=== PATIENT | female | born 1960 | race Caucasian/White ===

== ENCOUNTER 2025-04-23 12:40 | Emergency (ER) | payer OTHER, SELFPAY ==
[2025-04-23 12:45] VITALS: BP 99/73; PULSE 73; RESP 18; TEMP 36.3; O2SAT 95; BMI 29.5
[2025-04-23 15:55] VITALS: BP 126/82; PULSE 78; RESP 16; TEMP 37.1; O2SAT 99
--- NOTE | 2025-04-23 16:18 | EX.ED.DYSGE1 ---
HPI History of Present Illness Chief Complaint: Med Refill Narrative Narrative: Chief complaint and HPI: Medication refill. 65-year-old female who recently moved to [place] from [place] presents for evaluation of medication refill. Patient states she has chronic pain in which she follows with pain management in [place]. States that she was written a prescription for her monthly Percocet. Patient states [facility] told her that it could not be filled secondary to [id number] prescription. Patient states she is currently in the process of being switched to our pain management here at [facility]. Review of systems: See HPI Medications: As listed on the chart Allergies: As listed on the chart PFSH: Per chart Vital signs: As listed on the chart. Reviewed. Physical exam: Gen: A&O x3, NAD Head: Normocephalic, atraumatic Eyes: No sclera icterus, conjunctiva clear ENT: Moist mucous membranes CV: Regular rate Resp: Nonlabored respirations Musc: Full ROM, no deformity Neuro: Alert, oriented, grossly intact, sensation intact Psych: Cooperative, appropriate mood and affect [facility] Medical History (Updated 04/23/25 @ 15:[address] Adrien Marinelli, DO) Anxiety ADHD Depression HTN (hypertension) Home Medications ?Medication ?Instructions ?Recorded ?Last Taken ?Type oxycodone-acetaminophen 10 mg-325 1 tab PO Q6H PRN pain 7 days #28 04/23/25 Unknown Rx mg tablet (Percocet) tabs Allergy/AdvReac Type Severity Reaction Status Date / Time Sulfa (Sulfonamide Allergy Rash Verified 04/23/25 12:45 Antibiotics) Social History Smoking Status: Never smoker EXAM Physical Exam Const Vital Signs: 04/23/25 12:45 04/23/25 15:34 04/23/25 15:55 Temperature 97.3 F L 98.8 F Temperature Source Temporal Pulse Rate 73 78 Respiratory Rate 18 16 Respiratory Effort Normal Non-Labored Respiratory Pattern Normal Blood Pressure 99/73 126/82 H Blood Pressure Mean 81 96 Pulse Ox 95 99 Oxygen Delivery Method Room Air MDM MDM MDM Narrative Medical decision making narrative: 65-year-old female who recently moved to [place] from [place] presents for evaluation of medication refill. Patient states she has chronic pain in which she follows with pain management in [place]. States that she was written a prescription for her monthly Percocet. Patient states [facility] that [facility] could not be filled secondary to [id number] prescription. Patient states she is currently in the process of being switched to our pain management here at [facility]. Patient states that she follows with Wilman Mclaughlin for pain management in [place]. I did try to call the office number at [phone] however the office closed at 3 PM and therefore was not able to get a hold of the physician or staff member. I did call [facility] in which they did report that the patient has a prescription written by a Wilman Mclaughlin for Percocet 10 mg/325 every 6 hours as needed for pain x 30 days. I did inform the patient that given I cannot personally speak with the physician, I do not feel comfortable writing the Percocet prescription for 30 days instead I will write for 1 week. She was told that she needs to contact his office and explain the situation. I recommended her following up with our pain management as well and inform them of the situation. She confirmed understanding of plan. Return precautions explained. Patient stable to discharge home. Impression: 1. Medication refill request 2. History of chronic pain in pain management Discharge Plan Triage Chief Complaint: Med Refill ED Provider: Adrien Marinelli Dx/Rx/DC Orders Clinical Impression: Medication refill Instructions: Med Refill Prescriptions: New oxycodone-acetaminophen [Percocet] 10-325 mg tablet 1 tab PO Q6H PRN (Reason: pain) 7 Days Qty: 28 0RF Primary Care Provider: Samuel Coello Referrals: Samuel Coello MD [Primary Care Provider] - 3-5 Days Activity Restrictions/Additional Instructions: Follow-up with pain management Print Language: Persian Disposition Disposition: Home, Self Care Discharge Date/Time: 04/23/25 15:57
--- NOTE | 2025-04-23 16:18 | EX.ED.DYSGE1 ---
HPI History of Present Illness Chief Complaint: Med Refill Narrative Narrative: Chief complaint and HPI: Medication refill. 65-year-old female who recently moved to [place] from [place] presents for evaluation of medication refill. Patient states she has chronic pain in which she follows with pain management in [place]. States that she was written a prescription for her monthly Percocet. Patient states [facility] that [facility] could not be filled secondary to [id number] prescription. Patient states she is currently in the process of being switched to our pain management here at [facility]. Review of systems: See HPI Medications: As listed on the chart Allergies: As listed on the chart PFSH: Per chart Vital signs: As listed on the chart. Reviewed. Physical exam: Gen: A&O x3, NAD Head: Normocephalic, atraumatic Eyes: No sclera icterus, conjunctiva clear ENT: Moist mucous membranes CV: Regular rate Resp: Nonlabored respirations Musc: Full ROM, no deformity Neuro: Alert, oriented, grossly intact, sensation intact Psych: Cooperative, appropriate mood and affect [facility] Medical History (Updated 04/23/25 @ 15:[address] Adrien Marinelli, DO) Anxiety ADHD Depression HTN (hypertension) Home Medications ?Medication ?Instructions ?Recorded ?Last Taken ?Type oxycodone-acetaminophen 10 mg-325 1 tab PO Q6H PRN pain 7 days #28 04/23/25 Unknown Rx mg tablet (Percocet) tabs Allergy/AdvReac Type Severity Reaction Status Date / Time Sulfa (Sulfonamide Allergy Rash Verified 04/23/25 12:45 Antibiotics) Social History Smoking Status: Never smoker EXAM Physical Exam Const Vital Signs: 04/23/25 12:45 04/23/25 15:34 04/23/25 15:55 Temperature 97.3 F L 98.8 F Temperature Source Temporal Pulse Rate 73 78 Respiratory Rate 18 16 Respiratory Effort Normal Non-Labored Respiratory Pattern Normal Blood Pressure 99/73 126/82 H Blood Pressure Mean 81 96 Pulse Ox 95 99 Oxygen Delivery Method Room Air MDM MDM MDM Narrative Medical decision making narrative: 65-year-old female who recently moved to [place] from [place] presents for evaluation of medication refill. Patient states she has chronic pain in which she follows with pain management in [place]. States that she was written a prescription for her monthly Percocet. [facility] states [facility] that [facility] could not be filled secondary to [id number] prescription. Patient states she is currently in the process of being switched to our pain management here at [facility]. Patient states that she follows with Wilman Mclaughlin for pain management in [place]. I did try to call the office number at [phone] however the office closed at 3 PM and therefore was not able to get a hold of the physician or staff member. I did call [facility] in which they did report that the patient has a prescription written by a Wilman Mclaughlin for Percocet 10 mg/325 every 6 hours as needed for pain x 30 days. I did inform the patient that given I cannot personally speak with the physician, I do not feel comfortable writing the Percocet prescription for 30 days instead I will write for 1 week. She was told that she needs to contact his office and explain the situation. I recommended her following up with our pain management as well and inform them of the situation. She confirmed understanding of plan. Return precautions explained. Patient stable to discharge home. Impression: 1. Medication refill request 2. History of chronic pain in pain management Discharge Plan Triage Chief Complaint: Med Refill ED Provider: Adrien Marinelli Dx/Rx/DC Orders Clinical Impression: Medication refill Instructions: Med Refill Prescriptions: New oxycodone-acetaminophen [Percocet] 10-325 mg tablet 1 tab PO Q6H PRN (Reason: pain) 7 Days Qty: 28 0RF Primary Care Provider: Samuel Coello Referrals: Samuel Coello MD [Primary Care Provider] - 3-5 Days Activity Restrictions/Additional Instructions: Follow-up with pain management Print Language: Slovenian Disposition Disposition: Home, Self Care Discharge Date/Time: 04/23/25 15:57
== END 2025-04-23 15:57 | disposition home or self-care (01) ==
PROVIDERS: Emergency Provider Surgery; PCP Anesthesiology; Visit Provider Surgery
DX: Z76.0 Encounter for issue of repeat prescription (principal); I10 Essential (primary) hypertension; G89.29 Other chronic pain
CPT/HCPCS: 99282